=== PATIENT | male | born 1990 | race Caucasian/White ===

== ENCOUNTER 2024-05-31 10:06 | Emergency (ER) | payer OTHER, SELFPAY ==
[2024-05-31 10:37] VITALS: BP 121/79
[2024-05-31 11:08] LABS: % Basophils 0.3 % (0-2); % Eosinophils 0.3 % (0-6); % Immature Granulocytes 0.4 % (0-0.5); % Lymphocytes 11.6 % (20.5-51.1); % Monocytes 6.6 % (1.7-9.3); % Neutrophils 80.8 % (42.2-75.2); Absolute Eosinophils 0.1 10^3/uL (0-0.7); Absolute Immature Granulocytes 0.1 10^3/uL (0-0.05); Absolute Lymphocytes 1.7 10^3/uL (1.2-3.4); Absolute Neutrophils 11.6 10^3/uL (1.4-6.5); Hematocrit 40.9 % (39.0-52.0); Hemoglobin 14.1 g/dL (13.0-18.0); Mean Corp Hgb Conc. 34.5 g/dL (33.0-37.0); Mean Platelet Volume 10.4 fL (7.4-10.4); Nucleated Red Blood Cells % 0 % (-); Platelet Count 185 10^3/uL (130-400); Red Blood Cell Count 4.87 10^6/uL (4.70-6.10); Red Cell Dist. Width 12.1 % (11.5-14.5); White Blood Cell Count 14.4 10^3/uL (4.8-10.8)
[2024-05-31 11:19] LABS: ALT (SGPT) 27 U/L (0-50); AST (SGOT) 25 U/L (17-59); Alkaline Phosphatase 48 U/L (38-126); Blood Urea Nitrogen 14 mg/dl (9-20); Calcium 9.5 mg/dl (8.4-10.2); Carbon Dioxide 26 mmol/L (22-30); Chloride 99 mmol/L (98-107); Glucose 100 mg/dl (70-99); Potassium 3.8 mmol/L (3.5-5.1); Sodium 135 mmol/L (135-145); Total Bilirubin 1.2 mg/dl (0.2-1.3); Total Protein 7.5 g/dl (6.3-8.2); eGFR > 60.00
[2024-05-31] MEDS: TORADOL 30 MG IV (12:14)
--- NOTE | 2024-05-31 12:37 | ED.GENMED ---
History of Present Illness
General
Chief Complaint: Skin Problem
Time Seen by Provider: 05/31/24 11:59
History of Present Illness
History of Present Illness:
34-year-old male without significant past medical history presenting to the emergency department for concern of a scrotal rash. Patient reports symptoms started yesterday. Reports he has had similar rash in the past, however usually resolves on
its own. Overnight, was having chills and increased pain with difficulty sleeping. Went to the doctor today who told him to come to the hospital for further evaluation. He denies any new creams to the area. He denies abdominal pain or vomiting.
Denies any penile discharge. Denies concern for STD. Denies any excessive sweating to the genital region. Denies any history of diabetes. Denies additional medical complaints
Past History
Past History
ED Past Medical History: None
Social History
Tobacco: Non-smoker
Personal: Single
Employment: Employed ([employer])
Phy Exam
Physical Exam
Physical Exam:
General: Well-appearing, no clinical signs of dehydration, nontoxic and in no acute distress
HEENT: protecting airway
Neck: appears supple
CV: Normal heart rate
Resp: No accessory muscle use, no increased work of breathing
Abd: no distenstion
Extremities: No deformities, no swelling, no erythema, pulses and sensation intact
Neuro: alert, no focal neurologic deficit
: No significant swelling to the scrotum. Generalized erythema to bilateral testicles. No significant wounds or lesions. Normal lie to the testicles. Normal-appearing penis
Rectal: deferred
Psych: Normal affect
Skin: Intact
Course
Orders/Labs/Results
Orders:
Orders
05/31/24 10:41
US Scrotum Urgent
Comment:
Reason For Exam: pain, swelling
05/31/24 10:52
Complete Blood Count/With Diff Urgent
Comprehensive Metabolic Panel Urgent
05/31/24 12:10
Ketorolac [Toradol] 30 mg IV NOW STA
05/31/24 12:11
Urinalysis Reflex To Culture Urgent
Date Specimen was Collected: 05/31/24
Time Specimen was Collected: 13:03
05/31/24 13:36
CT Abd/pelvis W Iv Cont Urgent
Comment:
Reason For Exam: scrotal redness, r/o infection
Abnormal Lab Results
05/31/24
10:52
WBC 14.4 H 10^3/uL
(4.8-10.8)
Abs Immat Gran (auto) 0.1 H 10^3/uL
(0-0.05)
Absolute Neuts (auto) 11.6 H 10^3/uL
(1.4-6.5)
Absolute Monos (auto) 1.0 H 10^3/uL
(0.1-0.6)
Neutrophils % 80.8 H %
(42.2-75.2)
Lymphocytes % 11.6 L %
(20.5-51.1)
Glucose 100 H mg/dl
(70-99)
05/31/24 10:52
05/31/24 10:52
Vital Signs
Initial and Last Documented VS:
Initial Vital Signs
Temp Pulse Resp BP Pulse Ox
98.6 F 97 18 121/79 99
05/31/24 10:37 05/31/24 10:37 05/31/24 10:37 05/31/24 10:37 05/31/24 10:37
Last Documented Vital Signs
Temp Pulse Resp BP Pulse Ox
98.6 F 83 16 110/72 97
05/31/24 10:37 05/31/24 13:57 05/31/24 13:57 05/31/24 13:57 05/31/24 13:57
MDM/Problems Addressed
MDM/Problems Addressed:
34-year-old male presenting to the emergency department for scrotal rashes yesterday. Vital signs on arrival are normal.
On exam, patient is well-appearing, nontoxic. On exam, without significant swelling, mild generalized erythema and raised rash. No significant lesions. No abnormal lie. No open wounds. No history of diabetes with lower suspicion for a
Kasandra's infection. No concern for testicular torsion. Orchitis versus epididymitis versus tinea cruris is a consideration. Laboratory analysis obtained, patient does have a leukocytosis. Plan for scrotal ultrasound. Toradol administered for
pain
13:30 -ultrasound without any sign of epididymitis or orchitis. There is mention of scrotal thickening, consistent with scrotal cellulitis. To ensure no deep space infection, will obtain CT imaging
15:30 -CT without deep space infection. Mention of left inguinal hernia which patient is aware of. Again findings of scrotal cellulitis. Will start patient on Keflex. Otherwise feel stable for discharge. Strict return precautions communicated
and patient verbalized understanding
*Critical Care Note
Total Time (30-74mins, 75-104mins- exclusive of procedures): Not Applicable
ED Attending Note
-
Portions of this chart may have been created with voice recognition software.� Occasional wrong word or��sound alike� substitutions may have occurred due to the inherent limitations of voice recognition software.
Discharge Plan
Departure
Referrals:
Veronica Burgess MD [Family Provider] -
Interventions
Interventions:
*Risk Screen - Suicide Last Done: 05/31/24 10:37
*General Assessment Last Done: 05/31/24 10:37
*Neglect/Abuse Screening Last Done: 05/31/24 10:37
*ED COVID-19 Vaccine History Last Done: 05/31/24 10:37
ED-Skin Assessment Last Done: 05/31/24 12:15
Discharge Date and Time
Print Language: SAMOAN
[2024-05-31 13:57] VITALS: BP 110/72
[2024-05-31] MEDS: KEFLEX 500 MG PO (15:44)
== END 2024-05-31 15:50 | disposition home or self-care (01) ==
LOC: EMR 10:06
PROVIDERS: Student in an Organized Health Care Education/Training Program; EMERGENCY PHYSICIAN Student in an Organized Health Care Education/Training Program; FAMILY PHYSICIAN Hospitalist
DX: R21 Rash and other nonspecific skin eruption (principal); R68.83 Chills (without fever); N50.82 Scrotal pain; K40.90 Unilateral inguinal hernia, without obstruction or gangrene, not specified as recurrent; N49.2 Inflammatory disorders of scrotum
CPT/HCPCS: 99284; 96374; 74177; 76870; 80053; 85025; 93976; Q9967